=== PATIENT | female | born 1960 | race Caucasian/White ===

== ENCOUNTER 2023-10-18 16:00 | Outpatient (CLI) | payer OTHER | END 2023-10-18 16:01 | disposition home or self-care (01) | LOC: CSHSLEEP 16:00 | PROVIDERS: ATTEND Internal Medicine Critical Care Medicine | DX: G47.33 Obstructive sleep apnea (adult) (pediatric) (principal); F31.9 Bipolar disorder, unspecified; F41.9 Anxiety disorder, unspecified; R06.83 Snoring | CPT/HCPCS: 95800 ==